=== PATIENT | female | born 1990 | race Hispanic/Latino ===

== ENCOUNTER 2017-04-18 15:34 | Inpatient (IN) | payer MEDICAID ==
[2017-04-18 18:13] LABS: BASO % 0.3 % (0.0-2.0); EOS % 0.3 % (0.0-4.0); HEMATOCRIT 44.9 % (34.0-47.0); LYMPH # 1.4 K/uL (1.0-4.3); LYMPH % 13.7 % (20.0-40.0); MEAN CELL VOLUME 84.3 fL (81.0-99.0); MEAN CORPUSCULAR HEMOGLOBIN 28.8 pg (27.0-31.0); MEAN CORPUSCULAR HGB CONC 34.1 g/dL (33.0-37.0); MEAN PLATELET VOLUME 8.5 fL (7.2-11.7); MONO # 0.3 K/uL (0.0-0.8); MONO % 2.7 % (0.0-10.0); RED CELL DISTRIBUTION WIDTH 12.9 % (11.5-14.5); WHITE BLOOD COUNT 10.1 K/uL (4.8-10.8)
--- NOTE | 2017-04-18 18:17 | C.PDOC ---
History Of Present Illness <OliverioTeresa Eunice - Last Filed: 04/18/17 18:47> <Hannah Parkinson - Last Filed: 04/18/17 20:03> 26 y/o female presents to the ED requesting detox from morphine, prescreened. Pt states last use was last night. No physical complaints at this time. ( OliverioTeresa Dawson) History Per: Patient History/Exam Limitations: no limitations Suicide/Self Injury Attempted (Context): None Modifying Factor(s): Narcotics Severity: Mild Involuntary Hold By: None Recent travel outside of the [place]: No <OliverioFredTeresa L - Last Filed: 04/18/17 18:47> <Hannah Parkinson - Last Filed: 04/18/17 20:03> Time Seen by Provider: 04/18/17 17:49 Chief Complaint (Nursing): Substance Abuse Past Medical History Reviewed: Historical Data, Nursing Documentation, Vital Signs Family History: States: Unknown Family Hx - Social History Hx Alcohol Use: No Hx Substance Use: Yes <OliverioTeresa L - Last Filed: 04/18/17 18:47> Review Of Systems Constitutional: Negative for: Fever Cardiovascular: Negative for: Chest Pain Respiratory: Negative for: Shortness of Breath Gastrointestinal: Negative for: Vomiting Psych: Negative for: Suicidal ideation <OliverioFredTeresa L - Last Filed: 04/18/17 18:47> Physical Exam - Physical Exam Appears: Non-toxic, No Acute Distress Skin: Warm, Dry, No Rash Head: Atraumatic, Normacephalic Neck: Normal, Normal ROM, Supple Chest: Symmetrical Cardiovascular: Rhythm Regular, No Murmur Respiratory: Normal Breath Sounds, No Rales, No Rhonchi, No Wheezing Gastrointestinal/Abdominal: Normal Exam, Soft, No Tenderness Extremity: Bilateral: Atraumatic Neurological/Psych: Oriented x3, Normal Speech <OliverioFredTeresa L - Last Filed: 04/18/17 18:47> ED Course And Treatment - Laboratory Results Result Diagrams: 04/18/17 18:05 04/18/17 18:05 O2 Sat by Pulse Oximetry: 98 (room air) Pulse Ox Interpretation: Normal <Teresa Duron - Last Filed: 04/18/17 18:47> - Laboratory Results Result Diagrams: 04/18/17 18:05 04/18/17 18:05 <Hannah Parkinson - Last Filed: 04/18/17 20:03> Medical Decision Making <Teresa Duron - Last Filed: 04/18/17 18:47> <Hannah Parkinson - Last Filed: 04/18/17 20:03> Medical Decision Making: Plan: * Labs, UA (medical clearance) * CRISIS evaluation Labs ordered and reviewed. In my clinical judgment patient is medically cleared and stable for psychiatric admission. size worker contacted for evaluation. (Teresa Duron) Disposition <DuronTeresa - Last Filed: 04/18/17 18:47> Discussed With DrRebel: Brian Angela Comment: accepted the pt on his service and took over the care at 8PM Doctor Will See Patient In The: Hospital Counseled Patient/Family Regarding: Studies Performed, Diagnosis - Disposition Disposition Time: 20:02 - POA Present On Arrival: None <Hannah Parkinson - Last Filed: 04/18/17 20:03> - Disposition Condition: FAIR - Clinical Impression Clinical Impression: Drug dependence - PA / NURSES SUPERVISOR / Resident Statement MD/DO has reviewed & agrees with the documentation as recorded. - Scribe Statement The provider has reviewed the documentation as recorded by the Scribe <Teresa Duron - Last Filed: 04/18/17 18:47> <Hannah Parkinson - Last Filed: 04/18/17 20:03> - Scribe Statement Arnoldo Castillo All medical record entries made by the Scribe were at my direction and personally dictated by me. I have reviewed the chart and agree that the record accurately reflects my personal performance of the history, physical exam, medical decision making, and the department course for this patient. I have also personally directed, reviewed, and agree with the discharge instructions and disposition. (Teresa Duron) Decision To Admit <DuronTeresa Eunice - Last Filed: 04/18/17 18:47> - Pt Status Changed To: Hospital Disposition Of: Inpatient - Admit Certification Admit to Inpatient:: After my assessment, the patient will require hospitalization for at least two midnights. This is because of the severity of symptoms shown, intensity of services needed, and/or the medical risk in this patient being treated as an outpatient. - InPatient: Physician Admission Certification: I certify that this patient requires 2 or more midnights of care for the following reason:: After my assessment, the patient will require hospitalization for at least two midnights. This is because of the severity of symptoms shown, intensity of services needed, and/or the medical risk in this patient being treated as an outpatient. - . Bed Request Type: Detox Admitting Physician: Brian Angela <Hannah Parkinson - Last Filed: 04/18/17 20:03> - . Patient Diagnosis: Drug dependence
[2017-04-18 18:33] LABS: URINE BACTERIA OCC (<OCC); URINE BILIRUBIN NEGATIVE (NEGATIVE); URINE BLOOD NEGATIVE (NEGATIVE); URINE COLOR Straw (YELLOW); URINE GLUCOSE (UA) NORMAL (Normal); URINE KETONE NEGATIVE (NEGATIVE); URINE LEUKOCYTE ESTERASE NEG Leu/uL (Negative); URINE PROTEIN NEGATIVE (NEGATIVE); URINE UROBILINOGEN NORMAL mg/dL (0.2-1.0); WBC URINE < 1 /hpf (0-5)
[2017-04-18 18:36] LABS: CHLORIDE 108 mmol/L (98-107)
[2017-04-18 18:37] LABS: SODIUM 143 mmol/L (132-148)
[2017-04-18 18:39] LABS: CARBON DIOXIDE 26 mmol/L (22-30); GFR AFRICAN-AMERICAN > 60
[2017-04-18 18:40] LABS: ALB/GLOB RATIO 1.3 (1.0-2.1); ALKALINE PHOSPHATASE 73 U/L (38-126); ALT/SGPT 18 U/L (9-52); AST/SGOT 20 U/L (14-36); BILIRUBIN,TOTAL 0.9 mg/dL (0.2-1.3); BLOOD UREA NITROGEN 6 mg/dL (7-17); CALCIUM 9.8 mg/dl (8.6-10.4); GLUCOSE,RANDOM 94 mg/dL (65-105); TOTAL PROTEIN 7.8 g/dL (6.3-8.3)
[2017-04-18 18:41] LABS: ALCOHOL SERUM < 10 mg/dl (0-10)
[2017-04-18] MEDS ORDERED: Aluminum Hydroxide/Magnesium Hydroxide Susp (30 mL) PO PRN (21:28)
--- NOTE | 2017-04-19 13:22 | PCM.PSYCH ---
Initial Psychiatric Evaluation - Initial Psychiatric Evaluation Type of Admission: Voluntary Legal Status: Capacity Chief Complaint (in patient's own words): "I need to stop" History of Present Illness and Precipitating Events: The patient is seen, chart reviewed and case discussed. This is a 26-year-old female, single with a 6-year-old daughter. She lives with her parents and her daughter. 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 She reports that she was using 8 tablets of morphine, dose unknown, and 4-5 OxyContin pills, likely 15 mg, "blues." She started about a year ago and during that time she also used heroin on and off. She used marijuana as a teen and smokes 1 pack per day cigarettes, but she denies all other drug and alcohol use. This is her first detox and she has never been to rehabilitation or NA. She has not used Suboxone or methadone either. She reports some anxiety but denies major psychiatric problems. She is worried about the open [employer] involvement due to her drug use. Past psych history: Denies Medical history: Denies Family psych history: Her brother used drugs long ago. Current Medications: Active Medications Generic Name Dose Route Start Last Admin Trade Name Freq PRN Reason Stop Dose Admin Al Hydrox/Mg Hydrox/Simethicone 30 ml 04/18/17 21:28 Maalox 30 Ml PO TID PRN Indigestion / Heartburn Clonidine HCl 0.1 mg 04/18/17 21:28 Catapres PO Q8 PRN COWS Score More or Equal to 5 Gabapentin 300 mg 04/19/17 10:00 04/19/17 09:11 Neurontin PO 300 mg BID OMAR Administration Hydroxyzine HCl 25 mg 04/18/17 21:29 04/18/17 21:40 Atarax PO 25 mg Q4H PRN Administration Anxiety Ibuprofen 600 mg 04/18/17 21:29 Motrin Tab PO Q6H PRN Pain, moderate (4-7) Loperamide HCl 2 mg 04/18/17 21:28 Imodium PO Q8 PRN Diarrhea Methadone HCl 15 mg 04/19/17 10:00 04/19/17 09:11 Methadone PO 04/23/17 09:59 15 mg Q24H OMAR Administration Taper Nicotine 1 patch 04/19/17 10:45 04/19/17 10:59 Nicoderm Cq TD 1 patch DAILY OMAR Administration Ondansetron HCl 4 mg 04/18/17 21:28 Zofran Tab PO Q8 PRN Nausea/Vomiting Trazodone HCl 50 mg 04/18/17 21:29 04/18/17 21:40 Desyrel PO 50 mg HS PRN Administration Insomnia Past Psychiatric History - Past Psychiatric History Previous Treatment History: None Pertinent Medical Hx (Current Medical&Sleep Prob, Allergies): Allergies Allergy/AdvReac Type Severity Reaction Status Date / Time No Known Allergies Allergy Verified 04/18/17 15:56 No Known Home Med 04/18/17 Review of Systems - Neurological Neurological: UNREMARKABLE - Psychiatric Psychiatric: Abnormal Sleep Pattern, Anxiety. absent: Hallucinations, Homicidal Ideation, Suicidal Ideation Mental Status Examination - Personal Presentation Personal Presentation: Looks stated age - Affect Affect: Constricted - Motor Activity Motor Activity: Calm - Reliability in Providing Information Reliability in Providing Information: Good - Speech Speech: Organized - Mood Mood: Anxious - Formal Thought Process Formal Thought Process: No Impairment - Cognitive Functions Orientation: Person, Place, Situation, Time Sensorium: Alert Attention/Concentration: Attentive Estimate of Intelligence: Average Judgement: Intact, as evidence by: Insight regarding need for hospitalization - Risk Risk: Withdrawal, Diminished functioning - Strength & Assets Inventory Strength & Assets Inventory: Cooperative - Limitations Limitations: Other (DYFS) DSM 5 DX - DSM 5 DSM 5 Diagnosis: Opioid withdrawal Opioid use d/o - severe Tobacco use d/o - severe - Recommended/Plan of Treatment Treatment Recommendations and Plan of Treatment: Opioids: Methadone detox Gabapentin for augmentation As needed meds and vitamins Attend groups and activities [place] for abstinence and CBT for relapse prevention Support and psychoeducation Consider and encourage MAT Refer to after care Tobacco: Nicotine patch and [place] for abstinence 33 min Projected ELOS: 4 days Prognosis: Good with treatment Discharge Plan and Discharge Criteria: No wdw sxs Refer to IOP and MAt - Smoking Cessation Smoking Cessation Initiated: Yes
--- NOTE | 2017-04-20 14:19 | PCM.PYCHPN ---
Psychiatric Progress Note - Psychiatric Progress Note Patient seen today, length of contact: 15 min Patient Chief Complaint: "I am OK" Problems Identified/Issues Discussed: The pt is seen, chart reviewed, case discussed with staff. The pt is compliant with medications and reports no side-effects. Symptoms are improving but needs more time to stabilize. After care discussed, support and psychoeducation given. Medication Change: Yes (detox changes daily) Medical Record Reviewed: Yes Mental Status Examination - Cognitive Function Orientation: Person, Place, Situation, Time Memory: Intact Attention: WNL Concentration: WNL Association: WNL Fund of Knowledge: WNL - Mood Mood: Anxious - Affect Affect: Constricted - Speech Speech: Appropriate - Formal Thought Process Formal Thought Process: No Impairment - Suicidal Ideation Suicidal Ideation: No - Homicidal Ideation Homicidal Ideation: No Goal/Treatment Plan - Goal/Treatment Plan Need for Continued Stay: Discharge may exacerbated symptoms, Severe functional impairment Progress Toward Problem(s) and Goals/Treatment Plan: Opioids: Methadone detox Gabapentin for augmentation As needed meds and vitamins Attend groups and activities [place] for abstinence and CBT for relapse prevention Support and psychoeducation Consider and encourage MAT Refer to after care Tobacco: Nicotine patch and [place] for abstinence Estimated Date of D/C: 04/22/17
[2017-04-20 16:54] VITALS: RESP 18
--- NOTE | 2017-04-21 19:13 | PCM.PYCHPN ---
Psychiatric Progress Note - Psychiatric Progress Note Patient seen today, length of contact: 16 min Patient Chief Complaint: "Tired" Problems Identified/Issues Discussed: The pt is seen, chart reviewed, case discussed with staff. Support given, CBT and [place] used briefly No new symptoms reported, improving slowly and needs some more time No SEs from medications, risks discussed. After care discussed Medication Change: Yes (detox changes daily) Medical Record Reviewed: Yes Mental Status Examination - Cognitive Function Orientation: Person, Place, Situation, Time Memory: Intact Attention: WNL Concentration: WNL Association: WNL Fund of Knowledge: WNL - Mood Mood: Anxious - Affect Affect: Constricted - Speech Speech: Appropriate - Formal Thought Process Formal Thought Process: No Impairment - Suicidal Ideation Suicidal Ideation: No - Homicidal Ideation Homicidal Ideation: No Goal/Treatment Plan - Goal/Treatment Plan Need for Continued Stay: Discharge may exacerbated symptoms, Severe functional impairment Progress Toward Problem(s) and Goals/Treatment Plan: Opioids: Methadone detox Gabapentin for augmentation As needed meds and vitamins Attend groups and activities [place] for abstinence and CBT for relapse prevention Support and psychoeducation Consider and encourage MAT Refer to after care Tobacco: Nicotine patch and [place] for abstinence Estimated Date of D/C: 04/22/17
[2017-04-22 06:17] VITALS: O2SAT 98
[2017-04-22 10:09] VITALS: BP 97/61; PULSE 73; TEMP 97.4
== END 2017-04-22 10:30 | disposition home or self-care (01) | DRG 745 ==
LOC: C.ER 15:34 → C.7D 20:01
PROVIDERS: ADMIT Psychiatry & Neurology Psychiatry; ATTEND Psychiatry & Neurology Psychiatry
PROC: HZ2ZZZZ Detoxification Services for Substance Abuse Treatment (ICD-10-PCS; principal; 2017-04-18)
PROC: HZ59ZZZ Individual Psychotherapy for Substance Abuse Treatment, Supportive (ICD-10-PCS; 2017-04-18)
PROC: HZ46ZZZ Group Counseling for Substance Abuse Treatment, Psychoeducation (ICD-10-PCS; 2017-04-18)
PROC: HZ90ZZZ Pharmacotherapy for Substance Abuse Treatment, Nicotine Replacement (ICD-10-PCS; 2017-04-18)
DX: F11.23 Opioid dependence with withdrawal (principal); F41.9 Anxiety disorder, unspecified; F17.210 Nicotine dependence, cigarettes, uncomplicated